=== PATIENT | female | born 1970 ===

== ENCOUNTER 2017-10-09 15:20 | Emergency (ER) | payer SELFPAY ==
[2017-10-10 00:25] LABS: ADD MAN DIFF? NO
[2017-10-10 00:32] LABS: WHITE BLOOD COUNT 9.6 10^3/ul (4.8-10.8)
[2017-10-10 00:32] LABS: BASOPHILS % 0.4 % (0.0-2.0); EOSINOPHILS # 0.1 10^3/ul (0.0-0.5); EOSINOPHILS % 0.5 % (0.0-7.0); HEMATOCRIT 37.1 % (37.0-47.0); LYMPHOCYTES # 1.9 10^3/ul (0.8-2.9); LYMPHOCYTES % 19.9 % (15.0-51.0); MEAN CORPUSCULAR HEMOGLOBIN 31.7 pg (29.0-33.0); MEAN CORPUSCULAR VOLUME 90.5 fl (82.0-101.0); MEAN PLATELET VOLUME 9.5 fl (7.4-10.4); MONOCYTE # 0.5 10^3/ul (0.3-0.9); MONOCYTES % 5.6 % (0.0-11.0); NEUTROPHIL # 7.1 10^3/ul (1.6-7.5); NEUTROPHILS % 73.2 % (39.0-77.0); PLATELET COUNT 353 10^3/UL (140-415); RED CELL DISTRIBUTION WIDTH 12.5 % (11.5-14.5)
[2017-10-10 01:36] LABS: ALANINE AMINOTRANSFERASE 33 IU/L (13-69); ALBUMIN/GLOBULIN RATIO 1.33; ALKALINE PHOSPHATASE 102 IU/L (42-121); ANION GAP 17 (8-16); ASPARTATE AMINO TRANSFERASE 23 IU/L (15-46); BILIRUBIN,INDIRECT 0.5 mg/dl (0-1.1); BILIRUBIN,TOTAL 0.5 mg/dl (0.2-1.3); BLOOD UREA NITROGEN 12 mg/dl (7-20); CALCIUM 9.6 mg/dl (8.4-10.2); CARBON DIOXIDE 24 mmol/L (21-31); CHLORIDE 101 mmol/L (97-110); CREATININE 0.79 mg/dl (0.44-1.00); GLUCOSE 247 mg/dl (70-220); POTASSIUM 3.5 mmol/L (3.5-5.1); SODIUM 138 mmol/L (135-144)
[2017-10-10 01:52] LABS: T3 UPTAKE 34.7 % (23.5-40.5)
[2017-10-10 01:53] LABS: B-TYPE NATRIURETIC PEPTIDE 14 PG/ML (0-125); TROPONIN-I < 0.012 ng/ml (0.00-0.12)
[2017-10-10 01:54] LABS: FREE THYROXINE INDEX (Calc) 3.33 ug/ml (0.65-3.89)
[2017-10-10 02:02] LABS: T4 (THYROXINE) 9.6 ug/dl (5.5-11.0)
== END 2017-10-10 06:20 | disposition home or self-care (01) ==
LOC: E/R 10-10 06:20
DX: R25.1 Tremor, unspecified (principal); R45.0 Nervousness; R07.9 Chest pain, unspecified
CPT/HCPCS: 36415; 71045; 80053; 83880; 84436; 84443; 84479; 84484; 85025; 93005; 99285-25